=== PATIENT | female | born 1995 | race Caucasian/White ===

== ENCOUNTER → 2022-01-31 09:57 | Outpatient (CLI) | payer BC, SELFPAY ==
--- NOTE | ~2022-01-31 | XR_ITS ---
XR thoracic spine 3V DATE: 01/31/2022 11:08 INDICATION: Chronic back pain TECHNIQUE: AP, lateral, swimmer views COMPARISON: None FINDINGS: Mild dextro scoliosis of the thoracic spine. The thoracic pedicles are intact. No fracture or bone destruction. No paraspinal soft tissue thickeni ng. IMPRESSION: Mild dextroscoliosis Reviewed, dictated and finalized at location A. IMPRESSION: Mild dextroscoliosis
--- NOTE | ~2022-01-31 | XR_ITS ---
XR lumbar spine 2-3V DATE: 01/31/2022 11:08 INDICATION: Chronic back pain TECHNIQUE: AP, lateral, coned lateral lumbosacral views COMPARISON: None FINDINGS: There is slight levoscoliosis of the lumbar spine. The lumbar pedicles are intact. No fracture or bone destruction or spondylolisthesis. Lumbar and lumb osacral interspaces are well preserved. The sacroiliac joints are normal. IMPRESSION: Slight levoscoliosis; otherwise negative Reviewed, dictated and finalized at location A.
--- NOTE | ~2022-01-31 | XR_ITS ---
XR_CERV2-3V_CR DATE: 01/31/2022 11:08 INDICATION: Chronic neck pain TECHNIQUE: AP, open-mouth, lateral views COMPARISON: None FINDINGS: There is mild reversal of cervical curvature. C1 and C2 are normally aligned and the odontoid process is intact. There is minimal anterolisthesis at C2-3. There is mild loss of height at the C4-5 interspace. No fracture or dislocation or locked facet or prevertebral soft tissue swelling. IMPRESSION: Mild reversal of cervical curvature Minimal anterolisthesis at C2-3 Mild loss of height at C4-5 interspace Reviewed, dictated and finalized at Location [facility]. Reviewed, dictated and finalized at location A.
== END ==
PROVIDERS: PCP Nurse Practitioner Family; Visit Provider Nurse Practitioner Family
DX: M54.2 Cervicalgia (principal); M41.86 Other forms of scoliosis, lumbar region; M53.82 Other specified dorsopathies, cervical region; M47.812 Spondylosis without myelopathy or radiculopathy, cervical region
CPT/HCPCS: 72040; 72072; 72100

== ENCOUNTER → 2022-02-27 11:10 | Outpatient (CLI) | payer BC, SELFPAY ==
--- NOTE | ~2022-02-27 | MR_ITS ---
EXAMINATION: MR shoulder RT wo con DATE: 02/27/2022 11:57 INDICATION: Right shoulder pain TECHNIQUE: Magnetic resonance imaging (MRI) of the right shoulder was performed without intravenous c ontrast. Sequences included axial PD-weighted FS FSE, coronal oblique PD-weighted FS FSE, coronal obl ique T2-weighted FS FSE, sagittal PD-weighted FS FSE, and sagittal T1-weighted SE. COMPARISON: None. FINDINGS: Coracoacromial arch: The acromion undersurface is minimally curved in morphology (type I-II). The coracoacromial ligament is normal. Acromioclavicular joint is normal. Rotator cuff: Mild supraspinatus and infraspinatus tendinopathy without discrete tear. The teres minor and subscapu alfred tendons are normal. Normal rotator cuff muscle bulk and signal. Biceps tendon, glenoid labrum and glenohumeral cartilage: Longitudinal split tear of the extra-articular long head biceps tendon. The intra-articular portion o f the tendon appears normal. Labrum is normal with normal anterosuperior sublabral foramen. Glenohume ral cartilage is normal. Fluid: Small amount of fluid in the long head biceps tendon sheath disproportionate to the physiologic amoun t of fluid in the glenohumeral joint consistent with mild bicipital tenosynovitis. Very small amount of fluid in the subacromial/subdeltoid bursa consistent with minimal bursitis. No loose osteochondral bodies. Bones: Normal marrow signal with no edema, fracture or abnormal marrow replacing process. IMPRESSION: 1. Mild supraspinatus and infraspinatus tendinopathy without discrete tear. 2. Mild bicipital tenosynovitis with longitudinal split tear along the extra articular portion of the tendon. Reviewed, dictated and finalized at location B. IMPRESSION: 1. Mild supraspinatus and infraspinatus tendinopathy without discrete tear. 2. Mild bicipital tenosynovitis with longitudinal split tear along the extra ar ticular portion of the tendon.
== END ==
PROVIDERS: PCP Nurse Practitioner Family; Visit Provider Nurse Practitioner Family
DX: M25.511 Pain in right shoulder (principal); M75.81 Other shoulder lesions, right shoulder; M65.811 Other synovitis and tenosynovitis, right shoulder; S46.211A Strain of muscle, fascia and tendon of other parts of biceps, right arm, initial encounter
CPT/HCPCS: 73221

== ENCOUNTER 2024-05-12 12:37 | Outpatient (CLI) | payer BC, SELFPAY | END 2024-05-12 12:38 | disposition home or self-care (01) | PROVIDERS: PCP Nurse Practitioner Family; Visit Provider Nurse Practitioner Family | DX: M25.562 Pain in left knee (principal) | CPT/HCPCS: 73562 ==